=== PATIENT | female | born 1985 | race Caucasian/White ===

== ENCOUNTER 2019-01-20 10:33 | Inpatient (IN) | payer OTHER ==
[~2019-01-20] VITALS: Ht 160 cm; Wt 114.3 kg
[2019-01-20] MEDS ORDERED: PROMETHAZINE 25 MG/ML VIAL IVP PRN (13:15)
[2019-01-20] MEDS ORDERED: NALBUPHINE 10 MG/ML AMP IVP PRN (13:15)
[2019-01-20] MEDS ORDERED: OXYTOCIN 10 UNITS/ML VIAL IM SCH (13:15)
[2019-01-20] MEDS ORDERED: METHYLERGONOVINE 0.2 MG/ML AMP IM PRN (13:15)
[2019-01-20] MEDS ORDERED: DINOPROSTONE 10 MG SUPP VG SCH (13:15)
[2019-01-20] MEDS ORDERED: OXYTOCIN 20 UNITS in LACTATED RINGERS 1,000 ML IV SCH (13:20)
[2019-01-20 14:10] VITALS: BP 128/85
[2019-01-20 14:29] LABS: BASOPHILS % (AUTO) 0.4 % (0.0-2.0); EOSINOPHILS # (AUTO) 0.1 K/uL (0-0.4); EOSINOPHILS % (AUTO) 1.4 % (0.0-4.0); HEMATOCRIT 40.6 % (36-48); HEMOGLOBIN 13.4 g/dL (12.0-16.0); LYMPHOCYTES # (AUTO) 2.3 K/uL (2.5-16.5); LYMPHOCYTES % (AUTO) 24.2 % (20.5-51.1); MEAN CORPUSCULAR HEMOGLOBIN 27 pg (27-31); MEAN CORPUSCULAR HGB CONC 33 g/dL (33-37); MEAN CORPUSCULAR VOLUME 81.8 fL (80-94); MONOCYTES # (AUTO) 0.6 K/uL (0.8-1.0); MONOCYTES % (AUTO) 6.9 % (1.7-9.3); NEUTROPHILS # (AUTO) 6.3 K/uL (1.8-7.7); NEUTROPHILS % (AUTO) 67.1 % (42.2-75.2); PLATELET COUNT (AUTO) 169 K/uL (140-450); RED BLOOD CELL COUNT(AUTO) 4.96 MIL/uL (4.20-5.40); RED CELL DISTRIBUTION WIDTH 15.3 % (11.6-13.7); WHITE BLOOD COUNT (AUTO) 9.4 K/uL (4.8-10.8)
[2019-01-20 14:36] LABS: BILIRUBIN,URINE NEGATIVE (NEGATIVE); BLOOD, URINE NEGATIVE (NEGATIVE); COLOR,URINE YELLOW (YELLOW); LEUKOCYTE ESTERASE ,URINE 3+ (NEGATIVE); NITRITE, URINE NEGATIVE (NEGATIVE); PH,URINE 6.5 (5.0-9.0); UGLUCOSE NEGATIVE (NEGATIVE)
[2019-01-20 14:38] LABS: APPEARANCE,URINE SLIGHTLY CLOUDY (CLEAR)
[2019-01-20 14:43] LABS: RBC,URINE 0-5 /HPF (0-5); WBC,URINE 20-60 /HPF (0-5)
[2019-01-20 16:27] LABS: ANION GAP 11.9 (8-16); CARBON DIOXIDE 24.9 mmol/L (21-32); CREATININE 0.6 mg/dL (0.6-1.3); POTASSIUM 3.8 mmol/L (3.5-5.1)
[2019-01-20 16:30] LABS: ALBUMIN 2.2 g/dL (3.4-5.0); TOTAL BILIRUBIN 0.3 mg/dL (0.0-1.0)
[2019-01-20] MEDS ORDERED: NOVN SUBQ (17:28)
[2019-01-20] MEDS ORDERED: NOVR SUBQ (17:28)
[2019-01-20] MEDS ORDERED: PREN-380 PO (17:28)
[2019-01-20] MEDS ORDERED: INSULIN REGULAR, HUMAN 100 UNIT/ML VIAL SUBQ SCH ×2 (17:30→18:20)
[2019-01-20] MEDS ORDERED: INSULIN LISPRO SLIDING SCALE 100 UNITS/ML VIAL SUBQ PRN (19:30)
[2019-01-20] MEDS ORDERED: INSULIN NPH HUM/REG INSULIN HM 100 UNIT/ML 10 ML VIAL SUBQ SCH ×2 (21:00)
[2019-01-20] MEDS ORDERED: INSULIN NPH HUMAN ISOPHANE 100 UNIT/ML VIAL SUBQ SCH (22:00)
[2019-01-20] MEDS: LACTATED RINGERS 1,000 ML IV SCH (22:00)
[2019-01-21] MEDS ORDERED: OXYTOCIN 20 UNITS/LR PREMIX 1,000 ML IV ONE ×2 (03:33→21:38)
[2019-01-21] MEDS: LACTATED RINGERS 1,000 ML IV SCH ×3 (04:35→14:32)
[2019-01-21] MEDS ORDERED: NALBUPHINE 10 MG/ML AMP ONE (11:12)
[2019-01-21] MEDS ORDERED: PROMETHAZINE 25 MG/ML VIAL ONE (11:12)
[2019-01-21] MEDS ORDERED: BUPIVACAINE 0.125%/NS PREMIX 250 ML ONE (13:42)
[2019-01-21] MEDS ORDERED: LIDOCAINE 2% 100 MG/5 ML SYR IVP ONE (17:20)
[2019-01-21] MEDS ORDERED: PROPOFOL 200 MG/20 ML VIAL IV ONE (17:20)
[2019-01-21] MEDS ORDERED: SUCCINYLCHOLINE CHLORIDE 200 MG/10 ML VIAL IVP ONE (17:20)
[2019-01-21] MEDS ORDERED: OXYTOCIN 20 UNITS in LACTATED RINGERS 1,000 ML IV SCH (17:21)
[2019-01-21] MEDS ORDERED: METHYLERGONOVINE 0.2 MG/ML AMP IM PRN (17:25)
[2019-01-21] MEDS ORDERED: TEMAZEPAM 15 MG CAP PO PRN (17:25)
[2019-01-21] MEDS ORDERED: MEASLES, MUMPS, AND RUBELLA 1 VIAL SQVAC PRN (17:25)
[2019-01-21] MEDS ORDERED: oxyCODONE/APAP 5/325 MG 1 TAB TAB PO PRN (17:25)
[2019-01-21] MEDS ORDERED: INSULIN REGULAR, HUMAN 100 UNIT/ML VIAL SUBQ SCH (17:30)
[2019-01-21] MEDS ORDERED: MIDAZOLAM 2 MG/2 ML VIAL ONE (17:32)
[2019-01-21] MEDS ORDERED: LIDOCAINE MPF 2% 100 MG/5 ML VIAL INJ ONE (17:34)
[2019-01-21] MEDS ORDERED: MORPHINE PRES FREE 10 MG/10 ML AMP IV ONE (17:44)
[2019-01-21] MEDS ORDERED: ceFAZolin 1,000 MG VIAL IVP ONE (17:45)
[2019-01-21] MEDS ORDERED: diphenhydrAMINE 50 MG/ML VIAL IVP PRN ×2 (18:40)
[2019-01-21] MEDS ORDERED: NALBUPHINE 10 MG/ML AMP IVP PRN (18:40)
[2019-01-21] MEDS ORDERED: HYDROmorphone 1 MG/ML AMP IVP PRN (18:40)
[2019-01-21] MEDS ORDERED: MEPERIDINE 25 MG/ML SYR IVP PRN (18:40)
[2019-01-21] MEDS ORDERED: ONDANSETRON 4 MG/2 ML VIAL IVP PRN ×2 (18:40)
[2019-01-21] MEDS ORDERED: NALOXONE 0.4 MG/ML VIAL IVP PRN ×3 (18:40)
[2019-01-21] MEDS ORDERED: BLOOD GLUCOSE MONITORING 1 DEV DEV FS SCH (18:40)
[2019-01-21] MEDS: KETOROLAC 30 MG/ML VIAL IM/IVP SCH (21:04)
[2019-01-21] MEDS: OXYTOCIN 20 UNITS in LACTATED RINGERS 1,000 ML IV SCH (23:30)
[2019-01-22] MEDS: KETOROLAC 30 MG/ML VIAL IM/IVP SCH ×3 (03:00→15:19)
[2019-01-22 06:56] LABS: BASOPHILS % (AUTO) 0.1 % (0.0-2.0); HEMATOCRIT 34.6 % (36-48); HEMOGLOBIN 11.4 g/dL (12.0-16.0); LYMPHOCYTES # (AUTO) 1.4 K/uL (2.5-16.5); LYMPHOCYTES % (AUTO) 9.9 % (20.5-51.1); MEAN CORPUSCULAR HEMOGLOBIN 27 pg (27-31); MEAN CORPUSCULAR HGB CONC 33 g/dL (33-37); MEAN CORPUSCULAR VOLUME 82.6 fL (80-94); MONOCYTES # (AUTO) 0.6 K/uL (0.8-1.0); MONOCYTES % (AUTO) 4.3 % (1.7-9.3); NEUTROPHILS # (AUTO) 12.2 K/uL (1.8-7.7); NEUTROPHILS % (AUTO) 85.7 % (42.2-75.2); PLATELET COUNT (AUTO) 131 K/uL (140-450); RED BLOOD CELL COUNT(AUTO) 4.18 MIL/uL (4.20-5.40); RED CELL DISTRIBUTION WIDTH 15.3 % (11.6-13.7); WHITE BLOOD COUNT (AUTO) 14.2 K/uL (4.8-10.8)
[2019-01-22] MEDS ORDERED: OXYTOCIN 10 UNITS/ML VIAL ONE (07:45)
[2019-01-22] MEDS ORDERED: OXYTOCIN 20 UNITS/LR PREMIX 1,000 ML IV ONE (07:45)
[2019-01-22] MEDS: OXYTOCIN 20 UNITS in LACTATED RINGERS 1,000 ML IV SCH ×2 (07:46→15:20)
[2019-01-22] MEDS: SIMETHICONE 80 MG TAB.CHEW PO SCH ×4 (09:26→21:05)
--- NOTE | 2019-01-22 13:33 | NUR ---
01/22/19 RD INITIAL ASSESSMENT COMPLETED PLEASE REFER TO NUTRITION ASSESSMENT UNDER CARE ACTIVITY FOR ESTIMATED NUTRITIONAL NEEDS. 1. CONTINUE REGULAR DIET TOLERATED 2. GESTATIONAL DIABETES AND EDUCATION WERE PROVIDED 3. RD TO FOLLOW-UP 5-7 DAYS, LOW RISK [address]
[2019-01-22] MEDS: HYDROcodone/APAP 5/325 MG 1 TAB TAB PO PRN (18:30)
[2019-01-22] MEDS: DOCUSATE SOD/SENNA 50/8.6 MG 1 TAB PO SCH (21:04)
[2019-01-23] MEDS: HYDROcodone/APAP 5/325 MG 1 TAB TAB PO PRN (08:20)
[2019-01-23] MEDS: SIMETHICONE 80 MG TAB.CHEW PO SCH ×3 (08:56→21:00)
[2019-01-23] MEDS: IBUPROFEN 800 MG TAB PO PRN ×2 (14:35→21:22)
[2019-01-23] MEDS: DOCUSATE SOD/SENNA 50/8.6 MG 1 TAB PO SCH (21:00)
[2019-01-24] MEDS: HYDROcodone/APAP 5/325 MG 1 TAB TAB PO PRN (08:27)
[2019-01-24] MEDS: SIMETHICONE 80 MG TAB.CHEW PO SCH (08:27)
== END 2019-01-24 13:50 | disposition home or self-care (01) | DRG 788 ==
LOC: MLD 10:33 → MFCC 01-21 20:59
PROVIDERS: ADMIT Obstetrics & Gynecology; ATTEND Obstetrics & Gynecology
PROC: 10D00Z1 Extraction of Products of Conception, Low, Open Approach (ICD-10-PCS; principal; 2019-01-21 17:30)
DX: O24.424 Gestational diabetes mellitus in childbirth, insulin controlled (principal); O99.214 Obesity complicating childbirth; E66.01 Morbid (severe) obesity due to excess calories; O62.2 Other uterine inertia; O36.63X0 Maternal care for excessive fetal growth, third trimester, not applicable or unspecified; O76 Abnormality in fetal heart rate and rhythm complicating labor and delivery; Z37.0 Single live birth; Z3A.39 39 weeks gestation of pregnancy
CPT/HCPCS: 36415; 51702; 80053; 81001; 82948; 85025; 86592; 86886; 86900; 86901; 87086; 90707; J0330; J0690; J1815; J1885; J2001; J2250; J2270; J2300; J2550; J2590; J2704; J3490; J7060; J7120